=== PATIENT | female | born 1975 | race Two or more races ===

== ENCOUNTER 2016-08-28 19:15 | Emergency (ER) | payer SELFPAY ==
[~2016-08-28] VITALS: Ht 165.1 cm; Wt 91.7 kg
[2016-08-28] MEDS ORDERED: SKELAXIN800 MG PO (22:06)
[2016-08-28] MEDS ORDERED: NAPROXEN500 MG PO (22:06)
[2016-08-28 22:37] VITALS: BP 118/67
== END 2016-08-29 00:15 | disposition home or self-care (01) ==
LOC: EME 19:15
DX: S16.1XXA Strain of muscle, fascia and tendon at neck level, initial encounter (principal); S00.93XA Contusion of unspecified part of head, initial encounter; W20.8XXA Other cause of strike by thrown, projected or falling object, initial encounter
CPT/HCPCS: 72040; 99281; 99284